=== PATIENT | female | born 1980 | race Caucasian/White ===

== ENCOUNTER 2016-07-20 15:54 | Emergency (ER) | payer OTHER ==
[~2016-07-20] VITALS: Ht 160 cm; Wt 115.0 kg
[~2016-07-20 15:54] MED LIST: ALBU8.5H4 IH; BECL7.3A4 IH; DULO30C PO; IBUP100O10 PO; NEX40C PO; SALM50DI IH; TOLT4CAP PO
[2016-07-20 16:00] VITALS: BP 159/109; PULSE 87; RESP 15; O2SAT 99
--- NOTE | 2016-07-20 17:19 | ED.REPORT ---
HPI-Abd Pain F Under 38 Date of Service Jul 20, 2016 ED Provider: Eren Purvis MD Patient is a 36 year old female w/ a hx of DM on insulin (Lantus) who presents to the ED due to lower right abdominal pain since late May. Associated symptoms include nausea, thirst, and vomiting. Pt denies chills, shaking, fever. She is currently on Triplicity and Glimepiride. Nursing Notes Stated Complaint: ABDOMINAL PAIN, N/V/D Chief Complaint: Female Abdominal Pain Nursing Notes Reviewed: Yes Allergies: Coded Allergies: Penicillins (Verified Allergy, Severe, ANAPHYLAXIS, 03/06/09) ANAPHYLAXIS Quinolones (Verified Allergy, Severe, SEVERE RASH, 03/06/09) SEVERE RASH morphine (Verified Allergy, Severe, 03/06/09) very itchy Uncoded Allergies: CEPHALOSPORIN (Allergy, Severe, SEVERE RASH, 03/06/09) SEVERE RASH Scheduled Albuterol-Expunged Drug, Do Not Renew! (Albuterol-Expunged Drug, Do Not Renew!) 8.5 Gm Hfa.aer.ad 2 PUFFS IH PRN Beclomethasone-Expunged Drug, Do Not Renew! (Qvar-Expunged Drug, Do Not Renew!) 7.3 Gm Aer.w.adap 7.3 GM IH PRN Duloxetine-Expunged Drug, Do Not Renew! (Cymbalta-Expunged Drug, Do Not Renew!) 30 Mg Capsule. 30 MG PO AM Esomeprazole-Expunged Drug, Do Not Renew! (Esomeprazole-Expunged Drug, Do Not Renew!) 40 Mg Capsule. 40 MG PO AM IBUPROFEN-Expunged Drug, Do Not Renew! (IBUPROFEN-Expunged Drug, Do Not Renew!) 100 Mg/5 Ml Oral.susp 100 MG PO PRN Ondansetron ODT (Ondansetron ODT) 8 Mg Tab.rapdis 8 MG PO QID Salmeterol Vale-Expunged Drug, Do Not Renew! (Serevent Diskus-Expunged Drug, Do Not Renew!) 50 Mcg/Disk W/Dev Disk.w.dev 50 MCG IH PRN Tolterodine-Expunged Drug, Do Not Renew! (Tolterodine LA-Expunged Drug, Do Not Renew!) 4 Mg Cap.sr.24h 4 MG PO AM Scheduled PRN Promethazine HCl (Phenergan) 25 Mg Supp.rect 25 MG RC TID PRN PRN For Nausea General Time Seen by MD: 17:19 Chief Complaint Abdominal pain Hx Obtained From: Patient Arrived By: Walk-in Sudden in Onset?: Yes Onset Occurred: More than a week ago... (2 months) Symptom Duration: Since onset Progression since Onset: Intermittent Location: : RLQ Radiation: : Does not radiate Severity: Current: Mild Recent Healthcare: Recent doctor visit Similar Sx Previous: Yes Past Medical History Past Medical History denies Past Surgical History Reports: Appendectomy, Hysterectomy, Tonsillectomy Smoking History Unknown if Ever Smoker (.) Social History Other Social History: Good social support, , Local resident Ambulatory Status Independent Review of Systems Constitutional: Denies: Chills, Fever GI: Reports: Abdominal pain, Nausea, Vomiting Complete sys rev & neg: except as marked. Neurologic: Denies: Shaking Physical Exam Initial Vital Signs Vital Signs (First) Date Time Temp Pulse Resp B/P Pulse Ox O2 Delivery O2 Flow Rate FiO2 07/20/16 16:00 36.3 87 15 159/109 99 Room Air Initial VS: Reviewed Head / Eyes: Atraumatic, Normocephalic, PERRL ENT: Mucous membranes moist, Conjunctiva normal, No scleral icterus Extremities: Vascular intact, Neuro intact, No swelling, No tenderness Skin: Warm, Dry, No cyanosis Neurologic: Alert, Oriented, Nonfocal Psychiatric: Mood/affect normal, Behavior normal, Normal thought content General/Constitutional: Awake, Alert, Cooperative, Not toxic appearing Appearance / Presentation: Positive: Obese, morbidly Respiratory / Chest: Atraumatic, Breath sounds NL, Breath sounds = bilat, No respiratory distress Cardiovascular: Heart rate NL, Regular rhythm, Heart sounds NL Abdomen: Atraumatic, Soft tenderness RUQ Back: Atraumatic, Inspection NL, Full range of motion Interpretation & Diagnostics Interpretation & Diagnostics: ABDOMEN US IMPRESSION: No cholelithiasis or findings to suggest choledocholithiasis or acute cholecystitis Dictated by: Juliane Sarkar M.D. on 07/20/2016 at 18:54 Approved by: Juliane Sarkar M.D. on 07/20/2016 at 18:55 Lab Results Interpretation Result Diagram: 07/20/16 1703 07/20/16 1703 Test 07/20/16 16:15 07/20/16 17:03 Urine Color Yellow (YELLOW) Urine Appearance Clear (CLEAR,HAZY) Urine pH 5.5 (5.0-8.0) Urine Specific [place] <1.005 (1.003-1.035) Urine Protein Negativemg/dL (NEG,TRACE) Urine Glucose (UA) >1000mg/dL (NEGATIVE) Urine Ketones Negativemg/dL (NEGATIVE) Urine Occult Blood Negative (NEGATIVE) Urine Nitrite Negative (NEGATIVE) Urine Bilirubin Negative (NEGATIVE) Urine Urobilinogen Normalmg/dL (NORMAL) Urine Leukocyte Esterase Negative (NEGATIVE) Urine RBC 0-2/hpf (0-2) Urine WBC 0-5/hpf (0-5) Urine Epithelial Cells Moderate/hpf (NONE-MOD) Urine Crystals None seen (NONE SEEN) Urine Bacteria Moderate/hpf (NONE-FEW) Urine Hyaline Casts None/lpf (NONE) Urine Granular Casts None seen (NONE SEEN) Urine Waxy Casts None seen (NONE SEEN) Urine Red Blood Cell Casts None seen (NONE SEEN) Urine White Blood Cell Casts None seen (NONE SEEN) Urine Mucus None seen (None Seen) Urine Trichomonas None seen (NONE SEEN) Urine Yeast Many (NONE SEEN) Urinalysis Comment None Urine Culture Reflexed Indicated Hold Urine Received (Received) White Blood Count 6.0th/mm3 (3.8-10.1) Red Blood Count 5.02mil/mm3 (3.90-5.20) Hemoglobin 13.8g/dL (12.0-15.6) Hematocrit 39.6% (35.0-46.0) Mean Corpuscular Volume 78.9fL (81-100) Mean Corpuscular Hemoglobin 27.5pg (27.0-35.0) Mean Corpuscular Hemoglobin Concent 34.8% (32.0-37.0) Red Cell Distribution Width 13.8% (12.3-15.4) Platelet Count 143bil/L (150-400) Neutrophils (%) (Auto) 65.4% (40-74) Lymphocytes (%) (Auto) 25.2% (14-46) Monocytes (%) (Auto) 4.5% (4-12) Eosinophils (%) (Auto) 4.3% (0-5) Basophils (%) (Auto) 0.3% (0-3) Sodium Level 133mEq/L (134-144) Potassium Level 4.1mEq/L (3.5-5.2) Chloride Level 95mEq/L (97-108) Carbon Dioxide Level 22mmol/L (18-29) Blood Urea Nitrogen 9mg/dL (6-20) Creatinine 0.68mg/dL (0.57-1.00) Estimat Glomerular Filtration Rate 139mL/min (>59) Glucose Level 656mg/dL (60-99) Calcium Level 8.6mg/dL (8.5-10.1) Magnesium Level 1.8mg/dL (1.6-2.6) Total Bilirubin 0.8mg/dL (0.0-1.2) Aspartate Amino Transf (AST/SGOT) 23U/L (0-50) Alanine Aminotransferase (ALT/SGPT) 40U/L (0-32) Alkaline Phosphatase 200U/L (25-150) Total Protein 6.4g/dL (6.4-8.4) Albumin 4.1g/dL (3.4-5.0) Lipase 32U/L (13-60) CT Abd / Pelvis Interpretation IMPRESSION: 1. No acute intra-abdominal findings. The appendix is not visualized; however there are no ancillary findings to suggest acute appendicitis. 2. Hepatic steatosis and hepatosplenomegaly. Dictated by: Juliane Sarkar M.D. on 07/20/2016 at 19:10 Approved by: Juliane Sarkar M.D. on 07/20/2016 at 19:14 Study type: Abdominal CT no contrast Interpretation / Wet Read by: Interpret - Radiologist Re-Eval/Medical Decision Med Decision/Clinical Course Med Decision/Clinical Course: 36-year-old female with type II diabetes recently insulin-dependent, presents with lower abdominal pain. Labs are otherwise unremarkable, apart from her elevated sugar. She has no acidemia, no evidence of DKA. No elevation of white count. Ultrasound was unrevealing due to body habitus and a contracted gallbladder. CT scan did not reveal any significant pathology. She is discharged home after IV fluids and insulin with improvement of her sugar. No evidence of other significant metabolic derangement. Prompt to return if pain is worsening or other new symptoms develop. Clear fluid progressive diet and ongoing sugar monitoring. Follow up with PCP early this week Re-Evaluation/Progress #1: Time of Eval: 18:49 Patient Status: Condition unchanged Re-Evaluation/Progress Note: Pt rechecked. Plan to order insulin, pt's blood sugar is extremely high. Re-Evaluation/Progress #2: Time of Eval: 21:38 Patient Status: Condition improved Counseled Regarding: Diagnosis, Lab results, Need for follow-up, When/why to return to ED Discharge & Departure Primary Impression: Abdominal pain Abdominal location: unspecified location Qualified Code: R10.9 - Unspecified abdominal pain Additional Impression: Hyperglycemia Disposition: Home Discharge Condition All VS Reviewed: Yes Condition: Stable Additional Instructions: There are no dangerous causes for your symptoms today. I am sending you home with a prescription for Ondansetron and Phenergan to help with nausea. Take the ondansetron up to four times daily. If you still need relief from your nausea, U may use a Phenergan suppository, up to three times daily. Vicodin sparingly for pain, one to two tablets every 4-6 hours if needed. Follow up with your primary care physician for further care. Continue to carefully monitor your blood sugar and diabetes. Return to the Emergency Department for any new or worsening symptoms. I hope you feel better soon! Referrals: Amanda Santamaria PA-C (PCP) [place] Attestation Portion of this note were transcribed by Giselle Robb. I, Dr. Purvis, personally performed the history, physical exam, and medical decision-making: I reviewed and confirmed the accuracy for the information in the transcribed note. Signed by: nazario Escobedo, 07/20/161999 copies to: Amanda Santamaria PA-C, Christopher W MD Jul 20, 2016 17:19 Giselle Robb Jul 20, 2016 18:15
[2016-07-20 17:21] LABS: BASOPHILS % (AUTO) 0.3 % (0-3); EOSINOPHILS % (AUTO) 4.3 % (0-5); MONOCYTES % (AUTO) 4.5 % (4-12); Mean Corpuscular Hemoglobin 27.5 pg (27.0-35.0); Mean Corpuscular Volume 78.9 fL (81-100); NEUTROPHILS % (AUTO) 65.4 % (40-74); Platelet Count 143 bil/L (150-400)
[2016-07-20 17:44] LABS: Magnesium 1.8 mg/dL (1.6-2.6)
[2016-07-20] MEDS ORDERED: 0.9% Sodium Chloride 1,000 ML IV ONE ×3 (18:12→20:45)
[2016-07-20] MEDS ORDERED: Ondansetron 2 mg/mL 2 mL Inj IVPUSH ONE ×2 (18:15→21:40)
[2016-07-20] MEDS ORDERED: Pantoprazole 4 mg/mL 10 mL Inj IVPUSH ONE (18:15)
[2016-07-20] MEDS: HYDROmorphone 1 mg/mL Inj IVPUSH PRN ×2 (18:38→21:47)
--- NOTE | 2016-07-20 18:57 | DRSVH ---
PROCEDURE: US ABDOMEN, LIMITED ([id number]) INDICATIONS: ruq pain, elevated transaminases, known fatty live TECHNIQUE: Real-time focused scanning was performed of the abdomen, with image documentation. COMPARISON: None. FINDINGS: The gallbladder wall measures 2.0 mm in thickness. No stones, sludge, sonographic Hernandez's sign, or pericholecystic fluid. IMPRESSION: No cholelithiasis or findings to suggest choledocholithiasis or acute cholecystitis Dictated by: Juliane Sarkar M.D. on 07/20/2016 at 18:54 Approved by: Juliane Sarkar M.D. on 07/20/2016 at 18:55
[2016-07-20 18:58] LABS: APPEARANCE,URINE CLEAR (CLEAR,HAZY); COLOR,URINE YELLOW (YELLOW); OCCULT BLOOD,URINE NEGATIVE (NEGATIVE); PH,URINE 5.5 (5.0-8.0); UROBILINOGEN,URINE NORMAL (NORMAL); YEAST,URINE MANY (NONE SEEN)
--- NOTE | 2016-07-20 19:16 | DRSVH ---
PROCEDURE: CT ABDOMEN AND PELVIS WITH CONTRAST ([id number]) INDICATIONS: ruq pain x weeks, fatty liver TECHNIQUE: After the administration of intravenous contrast, 5 mm thick sections acquired from the diaphragm to the symphysis. 5 mm coronal and sagittal reformats were acquired. For radiation dose reduction, the following was used: automated exposure control, adjustment of mA and/or kV according to patient siz e. COMPARISON: None. FINDINGS: Image quality: Excellent. ABDOMEN: Lung bases: Lung bases are clear. Heart size is normal. Solid organs: The liver is diffusely hypodense consistent with hepatic steatosis. The spleen measures 14.5 cm in length. Gallbladder is unremarkable. Biliary system is non dilated. Pancreas enhances n ormally. No adrenal nodules. Kidneys demonstrate normal size and enhancement, without hydronephrosi s. Peritoneum and bowel: Bowel loops demonstrate normal wall thickness and caliber. The appendix is no t visualized; however there is no discrete right lower quadrant fluid or fat stranding to suggest acu te appendicitis. No free fluid or air. Nodes and vessels: No retroperitoneal or mesenteric adenopathy by size criteria. Aorta and inferior vena cava are normal in size. Miscellaneous: No ventral hernias. PELVIS: Genitourinary: Bladder wall thickness is normal. Uterus is nonvisualized and may be surgically absen t. The adnexa are unremarkable. Miscellaneous: No inguinal hernias or adenopathy. Bones: No suspicious bony lesions. There is moderate sclerosis of the left sacroiliac joint. No vert ebral body compression fractures. IMPRESSION: 1. No acute intra-abdominal findings. The appendix is not visualized; however there are no ancillary findings to suggest acute appendicitis. 2. Hepatic steatosis and hepatosplenomegaly. Dictated by: Juliane Sarkar M.D. on 07/20/2016 at 19:10 Approved by: Juliane Sarkar M.D. on 07/20/2016 at 19:14
[2016-07-20] MEDS ORDERED: Insulin Human REGular 300 Unit/3 mL Inj IV STA (19:24)
[2016-07-20] MEDS ORDERED: Insulin Human REGular-Omnicell 100 Unit/mL SUBQ STA (19:35)
[2016-07-20 20:44] VITALS: BP 132/82; PULSE 74; O2SAT 97
[2016-07-20] MEDS ORDERED: Promethazine 25 mg Rectal Suppository RECTAL ONE (22:10)
[2016-07-20] MEDS ORDERED: _HYDROcodone/APAP 5-325 mg Tablet PO PRN (22:10)
[2016-07-20] MEDS ORDERED: _Ondansetron ODT 4 mg Tablet PO PRN (22:10)
[2016-07-20] MEDS ORDERED: ONDA8TAB10 PO (22:14)
[2016-07-20] MEDS ORDERED: PROM25SU46 RC (22:14)
[2016-07-20 22:41] VITALS: BP 142/0; PULSE 74; O2SAT 95
[2016-08-15] MEDS ORDERED: TOPI25TA26 PO (15:39)
[2016-08-15] MEDS ORDERED: CETI10CA PO (15:39)
[2016-08-15] MEDS ORDERED: DULA0.75 SQ (15:39)
[2016-08-15] MEDS ORDERED: OMEP20TA24 PO (15:39)
[2016-08-15] MEDS ORDERED: GLIM4TAB2 PO (15:39)
[2016-08-15] MEDS ORDERED: INSU100I13 SUBQ (15:39)
[2016-08-15] MEDS ORDERED: VERA80TA2 PO (15:39)
== END 2016-07-20 22:42 | disposition home or self-care (01) ==
LOC: SED 15:54
DX: R10.31 Right lower quadrant pain (principal); E11.65 Type 2 diabetes mellitus with hyperglycemia; R11.2 Nausea with vomiting, unspecified; Z88.0 Allergy status to penicillin; Z88.5 Allergy status to narcotic agent; Z79.4 Long term (current) use of insulin
CPT/HCPCS: 36415; 74177; 76705; 80053; 81000; 81025; 82948; 83690; 83735; 85025; 87086; 87088; 96361; 96372; 96374; 96375; 96376; 99285; J1170; J1815; J2405; J7030; Q9967

== ENCOUNTER 2016-08-18 11:54 | Day surgery (SDC) | payer OTHER ==
[~2016-08-18] VITALS: Ht 160 cm; Wt 117.9 kg
[~2016-08-18 11:54] MED LIST changes: +0.9% Sodium Chloride 1,000 ML IV PRN; +CETI10CA PO; +DULA0.75 SQ; +GLIM4TAB2 PO; +INSU100I13 SUBQ; -NEX40C PO; +OMEP20TA24 PO; +ONDA8TAB10 PO; +PROM25SU46 RC; +Sodium Chloride LOK Flush 10 mL Syringe IV PRN; +TOPI25TA26 PO; +VERA80TA2 PO; +fentaNYL-PF 50 mCg/mL 2 mL Inj IVPUSH PRN
[2016-08-18 13:08] VITALS: BP 150/102; PULSE 81; RESP 14; O2SAT 98
[2016-08-18] MEDS ORDERED: 0.9% Sodium Chloride 1,000 ML IV ONE (15:41)
--- NOTE | 2016-08-18 15:43 | PCM.ENDEGD ---
EGD Date of Service: Aug 18, 2016 Physician Eric Fernandez MD Pre Procedure Diagnosis: Abdominal pain Post Procedure Dx & Findings: Healing esophageal erosions and healing gastric ulcer Procedure Esophagogastroduodenoscopy PROCEDURE IN DETAIL: After proper sedation, Olympus video endoscope was inserted into patient's mouth and esophagus was successfully intubated. Scope introduced esophagus. Esophagus showed normal shiny whitish mucosa consistent with squamous cell component. Z line was not intact at 35 cm from the incisors. One spot appeared to have redness and healing erosion. Biopsy obtained. Scope further advanced to the stomach. Stomach showed normal shiny mucosa with normal appearing rugae folds without any ulcer mass erosion. However in the prepyloric area, there was an area about 1-2 cm with swelling and edema with central scarring. It appears that the patient probably had an ulcer there. Biopsies were obtained. Cardia fundus body antrum pylorus were all visualized. Retroflexion was done. Stomach was easily inflated and deflatable using air. Scope further events to the distal duodenum. Duodenum revealed normal villous structures with normal appearing folds without any mass ulcer erosion. Random biopsies of the duodenum obtained 5 for celiac disease. Impression Healing esophagitis Healing stomach ulcer Recommendation Await biopsy Stop NSAIDs. Patient had prior use of NSAIDs. Presedation Assessment Risks and Benefits Informed consent was obtained from the patient after all risks and benefits including but not limited to drug reaction, infection, pain, bleeding, perforation, as well as alternatives were discussed. Patient monitoring Continuous pulse oximetry, cardiac monitoring, blood pressure monitoring, IV access, and oxygen at 2L per nasal cannula. Periprocedural Fentanyl: Fentanyl 125mcg Incrementally Midazolam: Midazolam 6mg Incrementally Complications There were no periprocedural complications identified. Post Procedure Plan Post Procedure Recommendations 1. Restrict activities today. 2. Resume normal activities in the morning. 3. Resume medications. 4. GERD behavioral modification: - Avoid fatty, acidic, spicy, large meals - Do not lie down after meals - Do not eat or drink anything for at least 2 1/2 hours before going to bed at night - Discontinue tobacco and alcohol - Decrease or avoid caffeine - Avoid chocolate and mints - Decrease weight - Avoid aspirin and non steroidal anti-inflammatory agents (NSAID) such as Aleve, Advil, Mobic, Naproxen, Ibuprofen, etc 5. Add proton pump inhibitor. Take 30 minutes before 1st meal of the day. 6. Patient informed of normal post procedure side effects as bloating, drowsiness, blood streaking in the stool 7. If gastric biopsy reveal H.pylori, continue with appropriate treatment 8. If small bowel biopsy reveals celiac, continue with appropriate treatment 9. Please don't hesitate to call me with any questions Eric Fernandez MD Aug 18, 2016 15:43
[2016-08-18 15:51] VITALS: BP 157/97; PULSE 88; RESP 14; O2SAT 98
[2016-08-18 16:01] VITALS: BP 138/91; PULSE 82; RESP 14; O2SAT 98
--- NOTE | 2016-08-20 12:09 | PATH ---
SURGICAL PATHOLOGY Attending Physician:Eric Fernandez M.D. CASE STATUS: Signed Out PATIENT NAME: LOUIS CASPER PID: [id number] : 1980 DATE COLLECTED:08/18/2016 00:00 SPECIMEN: 1: Duodenum, Biopsy 2: Gastric, Biopsy 3: Esophagus, Biopsy CLINICAL HISTORY: 1). DUODENAL BIOPSY 2). GASTRIC BIOPSY 3). DISTAL ESOPHAGEAL BIOPSY FINAL DIAGNOSIS: A. Duodenum, Biopsy: Mild chronic active duodenitis. Negative for features of celiac disease. No evidence of malignancy or dysplasia. B. Gastric Biopsy: Gastric antrum with mild chronic gastritis. Negative for Helicobacter organisms. Negative for intestinal metaplasia. No evidence of malignancy or dysplasia. C. Esophagus, Biopsy: Gastric glandular mucosa with chronic active inflammation. Negative for intestinal metaplasia. No evidence of malignancy or dysplasia. ICD10: K20.9 GROSS DESCRIPTION: The specimen is received in three formalin filled containers labeled with the patient's name. 1). The specimen is sublabeled "duodenal" and consists of 3 portions of tissue which aggregate to 0.3 x 0.3 x 0.2 CM. The specimen is entirely submitted in cassettes 1A. 2). The specimen is sublabeled "gastric" and consists of 2 portions of tissue which aggregate to 0.3 x 0.3 x 0.2 CM. The specimen is entirely submitted in cassette 2A. 3). The specimen is sublabeled "distal esophageal" and consists of a 0.3 x 0.3 x 0.3 CM portion of tissue which is entirely submitted in cassette 3A. 08/19/2016 [facility] ICD-9 CODES: CPT CODES: 1: 11634 2: 22474 3: 26250 Electronically Signed Out Bar Bennett MD [facility] Pathology [facility], [place] [address] Technical component performed at [facility], [address] [place] [address] Ave[address], [place], [address]
== END 2016-08-18 23:59 | disposition home or self-care (01) ==
LOC: END 11:54
PROVIDERS: ATTEND Internal Medicine
DX: K29.50 Unspecified chronic gastritis without bleeding (principal); K29.80 Duodenitis without bleeding; K20.9 Esophagitis, unspecified; K25.9 Gastric ulcer, unspecified as acute or chronic, without hemorrhage or perforation; K21.9 Gastro-esophageal reflux disease without esophagitis; G43.109 Migraine with aura, not intractable, without status migrainosus; J45.909 Unspecified asthma, uncomplicated; E11.9 Type 2 diabetes mellitus without complications; K58.9 Irritable bowel syndrome, unspecified; R16.2 Hepatomegaly with splenomegaly, not elsewhere classified; E66.9 Obesity, unspecified; Z68.41 Body mass index [BMI] 40.0-44.9, adult; Z79.4 Long term (current) use of insulin; Z79.84 Long term (current) use of oral hypoglycemic drugs; Z79.51 Long term (current) use of inhaled steroids

== ENCOUNTER 2016-12-31 19:29 | Emergency (ER) | payer OTHER ==
[~2016-12-31] VITALS: Ht 160 cm; Wt 109.1 kg
[~2016-12-31 19:29] MED LIST changes: -0.9% Sodium Chloride 1,000 ML IV PRN; -BECL7.3A4 IH; -DULO30C PO; -SALM50DI IH; -Sodium Chloride LOK Flush 10 mL Syringe IV PRN; -TOLT4CAP PO; -TOPI25TA26 PO; -fentaNYL-PF 50 mCg/mL 2 mL Inj IVPUSH PRN
[2016-12-31 19:32] VITALS: BP 169/99; PULSE 92; RESP 20; O2SAT 99
[2016-12-31 20:12] LABS: BASOPHILS % (AUTO) 0.3 % (0-3); EOSINOPHILS % (AUTO) 2.4 % (0-5); MONOCYTES % (AUTO) 5.5 % (4-12); Mean Corpuscular Hemoglobin 27.6 pg (27.0-35.0); NEUTROPHILS % (AUTO) 64.4 % (40-74); Platelet Count 150 bil/L (150-400)
--- NOTE | 2016-12-31 20:19 | DRSVH ---
PROCEDURE: X-RAY CHEST ONE VIEW, PORTABLE ([id number]) INDICATIONS: CHEST PAIN TECHNIQUE: One view of the chest was acquired. COMPARISON: None. FINDINGS: Surgical changes and devices: None. Lungs and pleura: No pleural effusions or pneumothorax. Lungs are clear. Mediastinum: Mediastinal contours appear normal. Heart size is normal. Bones and chest wall: No suspicious bony lesions. Overlying soft tissues appear unremarkable. IMPRESSION: No acute cardiopulmonary disease process. Dictated by: Oanh Frederick MD, PhD on 12/31/2016 at 20:17 Approved by: Oanh Frederick MD, PhD on 12/31/2016 at 20:17
[2016-12-31 20:29] VITALS: BP 147/90; PULSE 93; RESP 16; O2SAT 98
[2016-12-31 20:36] LABS: TROPONIN T < 0.010 ug/L (0.0-0.011)
[2016-12-31 20:42] LABS: Magnesium 1.8 mg/dL (1.6-2.6)
--- NOTE | 2016-12-31 21:01 | ED.REPORT ---
HPI-General Illness Date of Service Dec 31, 2016 ED Provider: Boom Foley MD Pt is a 36 y/o female with a history of IDDM, asthma, and COPD who presents to the ED c/o chest pain that radiates to her L arm and jaw onset a couple of days ago. Additional symptoms include dysphagia, diaphoresis, wheezing, and abdominal pain. She denies vomiting, nausea, diarrhea, or constipation. Medications reviewed with patient. In addition, pt takes one dose of Reglan every couple of days and 150 daily units of Lantus instead of 100 in the afternoon. Nursing Notes Stated Complaint: CHEST PAIN, ARM PAIN, HIGH BLOOD PRESSURE Chief Complaint: Chest Pain Nursing Notes Reviewed: Yes Allergies: Coded Allergies: Penicillins (Verified Allergy, Severe, ANAPHYLAXIS, 12/31/16) ANAPHYLAXIS Quinolones (Verified Allergy, Severe, SEVERE RASH, 12/31/16) SEVERE RASH morphine (Verified Allergy, Severe, 12/31/16) very itchy Uncoded Allergies: CEPHALOSPORIN (Allergy, Severe, SEVERE RASH, 03/06/09) SEVERE RASH Scheduled Albuterol-Expunged Drug, Do Not Renew! (Albuterol-Expunged Drug, Do Not Renew!) 8.5 Gm Hfa.aer.ad 2 PUFFS IH PRN Cetirizine HCl (Zyrtec) 10 Mg Capsule 10 MG PO HS Dulaglutide (Trulicity) 0.75 Mg/0.5 Ml Pen.injctr 0.75 MG SQ WEEKLY Glimepiride (Glimepiride) 4 Mg Tablet 4 MG PO DAILYAC IBUPROFEN-Expunged Drug, Do Not Renew! (IBUPROFEN-Expunged Drug, Do Not Renew!) 100 Mg/5 Ml Oral.susp 100 MG PO PRN Insulin Glargine (Lantus U100 Solostar Insulin Pen) 100 Unit/1 Ml Insuln.pen 20 UNIT SUBQ HS Omeprazole (Omeprazole) 40 Mg Capsule.dr 40 MG PO BID Omeprazole Magnesium (Prilosec Otc) 20 Mg Tablet.dr 20 MG PO DAILY Ondansetron ODT (Ondansetron ODT) 8 Mg Tab.rapdis 8 MG PO QID Verapamil (Verapamil) 80 Mg Tablet 80 MG PO DAILY Scheduled PRN Promethazine HCl (Phenergan) 25 Mg Supp.rect 25 MG RC TID PRN PRN For Nausea General Time Seen by MD: 20:58 Chief Complaint Chest pain Hx Obtained From: Patient, Spouse Arrived By: Walk-in Sudden in Onset?: No Symptom Duration: Constant Location: : Chest Quality: Painful Radiation: : Arm left: Jaw Severity: Current: Mild Severity: Maximum: Moderate Context Related History: Reports Asthma, Reports COPD, Reports Diabetes mellitus Recent Healthcare: No recent doctor visit, No recent hospitalization Similar Sx Previous: No Past Medical History Past Medical History Notes: Endoscopy 08/25 showed esophagitis and healing gastric ulcer Past Medical History Pneumonia Arthritis Anxiety Reports: Asthma, COPD, Diabetes mellitus Reports: Depression Past Surgical History Reports: Appendectomy, Hysterectomy, Tonsillectomy Smoking History Former Smoker Social History Other Social History: Good social support, , Local resident Ambulatory Status Independent Review of Systems Full Review of Systems Respiratory: Reports: Wheezing Cardiovascular: Reports: Chest pain GI: Reports: Abdominal pain, Dysphagia, Denies: Constipation, Diarrhea, Nausea, Vomiting Skin: Reports Diaphoresis Complete sys rev & neg: except as marked. Physical Exam Vital Signs Vital Signs Date Time Temp Pulse Resp B/P Pulse Ox O2 Delivery O2 Flow Rate FiO2 12/31/16 22:24 76 19 127/88 98 Room Air 12/31/16 20:29 93 16 147/90 98 Room Air 12/31/16 19:32 36.6 92 20 169/99 99 Room Air Neck: Supple, Full range of motion Extremities: Vascular intact, Neuro intact, No swelling, No tenderness Skin: Warm, Dry, No cyanosis Neurologic: Alert, Oriented, Nonfocal Psychiatric: Mood/affect normal, Behavior normal, Normal thought content General/Constitutional: Awake, Alert Respiratory / Chest: Atraumatic, Breath sounds NL, Breath sounds = bilat, No respiratory distress Cardiovascular: Heart rate NL, Regular rhythm, Heart sounds NL, No gallop, No murmurs, No rubs Abdomen: Soft, BS normoactive Tenderness/Guarding/Rebound: Positive: Tender epigastric (with guarding) Interpretation & Diagnostics Lab Results Interpretation Result Diagram: 12/31/16199912/31/161999 Test 12/31/16 20:00 12/31/16 20:07 White Blood Count 7.5th/mm3 (3.8-10.1) Red Blood Count 5.14mil/mm3 (3.90-5.20) Hemoglobin 14.2g/dL (12.0-15.6) Hematocrit 39.6% (35.0-46.0) Mean Corpuscular Volume 77.0fL (81-100) Mean Corpuscular Hemoglobin 27.6pg (27.0-35.0) Mean Corpuscular Hemoglobin Concent 35.9% (32.0-37.0) Red Cell Distribution Width 13.2% (12.3-15.4) Platelet Count 150bil/L (150-400) Neutrophils (%) (Auto) 64.4% (40-74) Lymphocytes (%) (Auto) 27.1% (14-46) Monocytes (%) (Auto) 5.5% (4-12) Eosinophils (%) (Auto) 2.4% (0-5) Basophils (%) (Auto) 0.3% (0-3) Sodium Level 131mEq/L (134-144) Potassium Level 4.0mEq/L (3.5-5.2) Chloride Level 93mEq/L (97-108) Carbon Dioxide Level 20mmol/L (18-29) Blood Urea Nitrogen 11mg/dL (6-20) Creatinine 0.65mg/dL (0.57-1.00) Estimat Glomerular Filtration Rate 146mL/min (>59) Glucose Level 600mg/dL (60-99) Calcium Level 9.1mg/dL (8.5-10.1) Magnesium Level 1.8mg/dL (1.6-2.6) Total Bilirubin 1.2mg/dL (0.0-1.2) Aspartate Amino Transf (AST/SGOT) 16U/L (0-50) Alanine Aminotransferase (ALT/SGPT) 27U/L (0-32) Alkaline Phosphatase 193U/L (25-150) Troponin T < 0.010ug/L (0.0-0.011) Total Protein 6.8g/dL (6.4-8.4) Albumin 4.4g/dL (3.4-5.0) Lipase 30U/L (13-60) Hold Urine Received (Received) ECG Interpretation ECG Interpretation: Sinus rhythm, rate 93 Probable left atrial enlargement Low voltage, precordial leads Time: 19:53 Interpreted by: ED physician X-Ray Chest Interpretation Chest Xray Interpretation: IMPRESSION: No acute cardiopulmonary disease process. Dictated by: Oanh Frederick MD, PhD on 12/31/2016 at 20:17 Approved by: Oanh Frederick MD, PhD on 12/31/2016 at 20:17 View: Portable, 1 view Interpretation / Wet Read by: Interpret - Radiologist Re-Eval/Medical Decision Med Decision/Clinical Course 28-year-old female that 2 diabetic with uncontrolled blood sugars. Also has some chest pain and left arm pain which is been ongoing for 2 days with a normal troponin and no ischemic changes on her ECG. Symptoms are improved with the GI cocktail and Protonix. 2 L of saline in the emergency department with improvement in her blood sugars. Given history of esophagitis and gastric ulcer suspect that she is having recurrent esophagitis also noted a report of difficulty swallowing per the patient. We will start her back on Protonix 40 twice a day 2 weeks. Advised the patient to contact primary care for further assistance with management of her blood sugars. Source of Hx: Old records Time of Eval: 23:21 Patient Status: Condition improved Re-Evaluation/Progress Note: Patient rechecked. She reports feeling better. Discussed plan for discharge. Patient understands and agrees with plan. F/U instructions and RTER warnings given. All questions addressed at this time. Counseled Regarding: Diagnosis, Lab results, Need for follow-up, When/why to return to ED Discharge & Departure Primary Impression: Chest pain Chest pain type: precordial pain Qualified Code: R07.2 - Precordial pain Additional Impressions: Gastroesophageal reflux disease Esophagitis presence: esophagitis presence not specified Qualified Code: K21.9 - Gastro-esophageal reflux disease without esophagitis Diabetes type 2, uncontrolled Disposition: Home Discharge Condition All VS Reviewed: Yes Condition: Stable Patient Instructions: Gastroesophageal Reflux Disease (ED) Additional Instructions: Thank you for entrusting us with your care today. Your emergency department evaluation today including examination, lab work, EKG , and chest X-ray are reassuring. This does not seem to be related to cardiac disease. Esophageal reflux is felt much more likely. Blood sugars are also noted to be uncontrolled. Take Protonix 40 mg twice a day for 2 weeks then once a day. Contact primary care for follow-up as soon as possible, it is important that you be seen soon for adjustment in medications to better control blood suga Please return to the emergency department for increasing chest pain, difficulty breathing, fevers, frequent vomiting. Referrals: Amanda Santamaria PA-C (PCP) Scribe Attestation Portions of this note were transcribed by Yeny Luke. I, Dr. Foley, personally performed the history, physical exam and medical decision-making; I reviewed and confirmed the accuracy of the information in the transcribed note. copies to: Amanda Santamaria PA-C, Donald L MD Dec 31, 2016 21:01 Yeny Luke Dec 31, 2016 21:11
[2016-12-31] MEDS ORDERED: Pantoprazole 40 mg ER24 Tablet PO ONE (21:20)
[2016-12-31] MEDS ORDERED: 0.9% Sodium Chloride 1,000 ML IV ONE ×2 (21:20→22:25)
[2016-12-31 22:24] VITALS: BP 127/88; PULSE 76; RESP 19; O2SAT 98
[2016-12-31] MEDS ORDERED: LidocaineVisc 2%:Antacid 1:1 10 mL Syringe PO ONE (22:40)
[2016-12-31] MEDS ORDERED: OMEP40CA36 PO (23:40)
[2016-12-31 23:57] VITALS: BP 141/84; PULSE 79; RESP 19; O2SAT 97
== END 2016-12-31 23:52 | disposition home or self-care (01) ==
LOC: SED 19:29
DX: R07.2 Precordial pain (principal); K21.9 Gastro-esophageal reflux disease without esophagitis; E11.65 Type 2 diabetes mellitus with hyperglycemia; F41.8 Other specified anxiety disorders; J44.9 Chronic obstructive pulmonary disease, unspecified; Z79.4 Long term (current) use of insulin; Z87.01 Personal history of pneumonia (recurrent); Z87.891 Personal history of nicotine dependence; Z88.0 Allergy status to penicillin; Z88.1 Allergy status to other antibiotic agents; Z88.5 Allergy status to narcotic agent
CPT/HCPCS: 36415; 71010; 80053; 81025; 82948; 83690; 83735; 84484; 85025; 93005; 96360; 96361; 99285; J7030